=== PATIENT | male | born 1995 | race Caucasian/White ===

== ENCOUNTER 2017-08-28 18:43 | Emergency (ER) | payer MEDICAID ==
[~2017-08-28] VITALS: Ht 175.3 cm; Wt 81.8 kg
[2017-08-28 18:44] VITALS: BP 144/80
== END 2017-08-28 21:29 | disposition left against medical advice (07) ==
LOC: EMS 18:44
DX: R07.89 Other chest pain (principal); R06.00 Dyspnea, unspecified; R11.0 Nausea; Z53.21 Procedure and treatment not carried out due to patient leaving prior to being seen by health care provider
CPT/HCPCS: 93005; 99281

== ENCOUNTER 2017-09-19 09:46 | Emergency (ER) | payer MEDICAID ==
[~2017-09-19] VITALS: Ht 180.3 cm; Wt 84.1 kg
[2017-09-19] MEDS ORDERED: VENL-53 PO (09:56)
[2017-09-19] MEDS ORDERED: TRAZ-144 PO (09:56)
[2017-09-19] MEDS ORDERED: KETOROLAC TROMETHAMINE 60 MG/2 ML VIAL IM ONE (13:45)
[2017-09-19 14:15] VITALS: BP 125/45
== END 2017-09-19 14:17 | disposition home or self-care (01) ==
LOC: EMS 09:46
DX: R51 Headache (principal); F41.0 Panic disorder [episodic paroxysmal anxiety]; F32.9 Major depressive disorder, single episode, unspecified; F12.90 Cannabis use, unspecified, uncomplicated; F17.200 Nicotine dependence, unspecified, uncomplicated
CPT/HCPCS: 70450; 96372; 99284; J1885

== ENCOUNTER 2021-04-30 12:36 | Emergency (ER) | payer MEDICAID ==
[~2021-04-30] VITALS: Ht 180.3 cm; Wt 113.6 kg
[~2021-04-30 12:36] MED LIST: TRAZ-252 PO; VENL-53 PO
[2021-04-30 14:00] VITALS: BP 135/81
== END 2021-04-30 14:17 | disposition home or self-care (01) ==
LOC: EMS 12:40
DX: K08.89 Other specified disorders of teeth and supporting structures (principal); F12.90 Cannabis use, unspecified, uncomplicated; F41.9 Anxiety disorder, unspecified; F32.9 Major depressive disorder, single episode, unspecified
CPT/HCPCS: 99283